=== PATIENT | female | born 1955 | race Caucasian/White ===

== ENCOUNTER 2018-06-21 07:58 | Inpatient (IN) | payer OTHER ==
[~2018-06-21 07:58] MED LIST: LIDOCAINE 2% (SDV) 5 ML INJ; PROPOFOL 200 MG INJ
[2018-06-21] MEDS ORDERED: VANCOMYCIN 1 GM (PMX) 250 ML (10:24)
[2018-06-21] MEDS: VANCOMYCIN 1 GM (PMX) 250 ML IVPB (10:43)
[2018-06-21] MEDS ORDERED: ZOLPIDEM 5 MG TAB PO (11:30)
[2018-06-21] MEDS ORDERED: HYDROmorphONE 2 MG/ML SYG (11:53)
[2018-06-21] MEDS ORDERED: GLUCAGON 1 MG INJ (12:04)
[2018-06-21] MEDS ORDERED: METOPROLOL 5 MG INJ (12:27)
[2018-06-21] MEDS ORDERED: SUGAMMADEX SODIUM 200 MG/2 ML VIAL IV (12:53)
[2018-06-21] MEDS ORDERED: metroNIDAZOLE 500 MG/NS (PMX) 100 ML IVPB (12:55)
[2018-06-21] MEDS ORDERED: HYDROmorphONE 1 MG/5 ML IV SYRINGE IV ×2 (13:30)
[2018-06-21] MEDS ORDERED: NACL 0.9% 3 ML SYG IV (15:00)
[2018-06-21] MEDS: D5W-0.45 NACL + KCL 20 MEQ 1,000 ML IV ×2 (15:55→21:10)
[2018-06-21] MEDS: metroNIDAZOLE 500 MG/NS (PMX) 100 ML IVPB ×2 (15:58→22:19)
[2018-06-21] MEDS: morphine 2 MG INJ IV (16:54)
[2018-06-22] MEDS: METOCLOPRAMIDE 10 MG INJ IV ×2 (04:47→11:06)
[2018-06-22] MEDS: D5W-0.45 NACL + KCL 20 MEQ 1,000 ML IV ×2 (04:47→17:24)
[2018-06-22] MEDS: HYDROCODONE/APAP (5/325) TAB PO (04:52)
[2018-06-22 05:06] LABS: ADD MAN DIFF? NO
[2018-06-22] MEDS: PANTOPRAZOLE 40 MG INJ IV (05:06)
[2018-06-22] MEDS: metroNIDAZOLE 500 MG/NS (PMX) 100 ML IVPB ×3 (05:06→22:50)
[2018-06-22 05:07] LABS: WHITE BLOOD COUNT 8.1 10^3/ul (4.8-10.8)
[2018-06-22 05:07] LABS: BASOPHILS % 0.4 % (0.0-2.0); EOSINOPHILS % 0.1 % (0.0-7.0); HEMATOCRIT 27.1 % (37.0-47.0); HEMOGLOBIN 8.8 g/dl (12.0-16.0); LYMPHOCYTES # 0.8 10^3/ul (0.8-2.9); LYMPHOCYTES % 10.1 % (15.0-51.0); MEAN CORPUSCULAR HEMOGLOBIN 29.7 pg (29.0-33.0); MEAN CORPUSCULAR HGB CONC 32.5 g/dl (32.0-37.0); MEAN CORPUSCULAR VOLUME 91.6 fl (82.0-101.0); MEAN PLATELET VOLUME 12.6 fl (7.4-10.4); MONOCYTE # 0.4 10^3/ul (0.3-0.9); MONOCYTES % 5.2 % (0.0-11.0); NEUTROPHIL # 6.8 10^3/ul (1.6-7.5); NEUTROPHILS % 83.7 % (39.0-77.0); PLATELET COUNT 107 10^3/UL (140-415); RED BLOOD COUNT 2.96 10^6/ul (4.20-5.40); RED CELL DISTRIBUTION WIDTH 13.5 % (11.5-14.5)
[2018-06-22 05:24] LABS: IRON 25 ug/dl (35-150)
[2018-06-22 05:34] LABS: % IRON SATURATION 15 % SAT (22-52); ALANINE AMINOTRANSFERASE 22 IU/L (13-69); ALBUMIN 2.4 g/dl (3.3-4.9); ALBUMIN/GLOBULIN RATIO 0.92; ALKALINE PHOSPHATASE 72 IU/L (42-121); ANION GAP 8 (8-16); ASPARTATE AMINO TRANSFERASE 18 IU/L (15-46); BILIRUBIN,INDIRECT 0.4 mg/dl (0-1.1); BILIRUBIN,TOTAL 0.4 mg/dl (0.2-1.3); BLOOD UREA NITROGEN 6 mg/dl (7-20); CALCIUM 7.6 mg/dl (8.4-10.2); CARBON DIOXIDE 26 mmol/L (21-31); CHLORIDE 104 mmol/L (97-110); CHOL/HDL RATIO 3.4 RATIO; CHOLESTEROL 96 mg/dl (100-200); CREATININE 0.54 mg/dl (0.44-1.00); GLUCOSE 135 mg/dl (70-220); HDL CHOLESTEROL 28 mg/dl (35-98); LDL CHOLESTEROL,CALCULATED 48 mg/dl; MAGNESIUM 1.8 mg/dl (1.7-2.5); POTASSIUM 3.8 mmol/L (3.5-5.1); SODIUM 134 mmol/L (135-144); TOTAL IRON BINDING CAPACITY 168 ug/dl (241-421); TRIGLYCERIDES 102 mg/dl (0-149)
[2018-06-22] MEDS ORDERED: ENOXAPARIN 40 MG/0.4 ML SYG SC (07:00)
[2018-06-22 08:30] LABS: HEMOGLOBIN A1C 5.2 % (0-5.9)
[2018-06-22] MEDS: HYDROCODONE/APAP (10/325) TAB PO ×2 (10:40→21:06)
[2018-06-23] MEDS: D5W-0.45 NACL + KCL 20 MEQ 1,000 ML IV ×3 (04:35→22:42)
[2018-06-23 05:26] LABS: ADD MAN DIFF? NO
[2018-06-23 05:35] LABS: ABNORMAL IP MESSAGE 1; BASOPHILS % 0.2 % (0.0-2.0); EOSINOPHILS # 0.1 10^3/ul (0.0-0.5); EOSINOPHILS % 1.3 % (0.0-7.0); HEMATOCRIT 24.5 % (37.0-47.0); HEMOGLOBIN 7.9 g/dl (12.0-16.0); LYMPHOCYTES # 0.6 10^3/ul (0.8-2.9); LYMPHOCYTES % 8.9 % (15.0-51.0); MEAN CORPUSCULAR HEMOGLOBIN 30.3 pg (29.0-33.0); MEAN CORPUSCULAR HGB CONC 32.2 g/dl (32.0-37.0); MEAN CORPUSCULAR VOLUME 93.9 fl (82.0-101.0); MEAN PLATELET VOLUME 11.5 fl (7.4-10.4); MONOCYTE # 0.3 10^3/ul (0.3-0.9); MONOCYTES % 4.9 % (0.0-11.0); NEUTROPHIL # 5.2 10^3/ul (1.6-7.5); NEUTROPHILS % 84.4 % (39.0-77.0); PLATELET COUNT 135 10^3/UL (140-415); RED BLOOD COUNT 2.61 10^6/ul (4.20-5.40); RED CELL DISTRIBUTION WIDTH 13.4 % (11.5-14.5)
[2018-06-23 05:35] LABS: WHITE BLOOD COUNT 6.2 10^3/ul (4.8-10.8)
[2018-06-23] MEDS: metroNIDAZOLE 500 MG/NS (PMX) 100 ML IVPB ×3 (05:41→21:26)
[2018-06-23] MEDS: PANTOPRAZOLE 40 MG INJ IV (05:42)
[2018-06-23 05:54] LABS: POSITIVE DIFF @See below
[2018-06-23 05:57] LABS: ANION GAP 6 (8-16); BLOOD UREA NITROGEN 3 mg/dl (7-20); CALCIUM 7.5 mg/dl (8.4-10.2); CARBON DIOXIDE 30 mmol/L (21-31); CHLORIDE 102 mmol/L (97-110); CREATININE 0.57 mg/dl (0.44-1.00); GLUCOSE 117 mg/dl (70-220); MAGNESIUM 1.8 mg/dl (1.7-2.5); POTASSIUM 3.7 mmol/L (3.5-5.1); SODIUM 134 mmol/L (135-144)
[2018-06-23] MEDS: HYDROCODONE/APAP (10/325) TAB PO ×2 (07:26→17:20)
[2018-06-23] MEDS: METOCLOPRAMIDE 10 MG INJ IV ×2 (08:27→15:38)
[2018-06-23] MEDS: CHOLECALCIFEROL 2,000 UNIT CAP PO (08:46)
[2018-06-23] MEDS: DOCUSATE SODIUM 100 MG CAP PO (15:38)
[2018-06-23] MEDS: HYDROCODONE/APAP (5/325) TAB PO (21:27)
[2018-06-24] MEDS: DOCUSATE SODIUM 100 MG CAP PO ×3 (00:25→21:01)
[2018-06-24] MEDS: HYDROCODONE/APAP (10/325) TAB PO ×2 (04:29→22:19)
[2018-06-24] MEDS: metroNIDAZOLE 500 MG/NS (PMX) 100 ML IVPB ×3 (06:07→21:00)
[2018-06-24] MEDS: PANTOPRAZOLE 40 MG INJ IV (06:07)
[2018-06-24] MEDS: CHOLECALCIFEROL 2,000 UNIT CAP PO (09:14)
[2018-06-24] MEDS: D5W-0.45 NACL + KCL 20 MEQ 1,000 ML IV ×3 (09:14→23:58)
[2018-06-24 11:54] LABS: MAGNESIUM 1.8 mg/dl (1.7-2.5)
[2018-06-24 11:54] LABS: ALANINE AMINOTRANSFERASE 22 IU/L (13-69); ALBUMIN 2.3 g/dl (3.3-4.9); ALBUMIN/GLOBULIN RATIO 0.79; ALKALINE PHOSPHATASE 77 IU/L (42-121); ANION GAP 7 (8-16); ASPARTATE AMINO TRANSFERASE 21 IU/L (15-46); BILIRUBIN,INDIRECT 0.3 mg/dl (0-1.1); BILIRUBIN,TOTAL 0.3 mg/dl (0.2-1.3); BLOOD UREA NITROGEN 3 mg/dl (7-20); CALCIUM 7.9 mg/dl (8.4-10.2); CARBON DIOXIDE 34 mmol/L (21-31); CHLORIDE 100 mmol/L (97-110); CREATININE 0.59 mg/dl (0.44-1.00); GLUCOSE 110 mg/dl (70-220); POTASSIUM 3.6 mmol/L (3.5-5.1); SODIUM 137 mmol/L (135-144); TOTAL PROTEIN 5.2 g/dl (6.1-8.1)
[2018-06-24] MEDS: ACETAMINOPHEN 325 MG TAB PO (12:00)
[2018-06-24] MEDS ORDERED: ERGOCALCIFEROL (8000 UNITS/ML PO SYG) PO (12:30)
[2018-06-24 13:57] LABS: ADD MAN DIFF? NO
[2018-06-24 14:00] LABS: ABNORMAL IP MESSAGE 1; BASOPHILS % 0.2 % (0.0-2.0); EOSINOPHILS # 0.1 10^3/ul (0.0-0.5); EOSINOPHILS % 1.3 % (0.0-7.0); HEMATOCRIT 24.2 % (37.0-47.0); HEMOGLOBIN 7.7 g/dl (12.0-16.0); LYMPHOCYTES # 0.6 10^3/ul (0.8-2.9); LYMPHOCYTES % 12.7 % (15.0-51.0); MEAN CORPUSCULAR HEMOGLOBIN 29.7 pg (29.0-33.0); MEAN CORPUSCULAR HGB CONC 31.8 g/dl (32.0-37.0); MEAN CORPUSCULAR VOLUME 93.4 fl (82.0-101.0); MEAN PLATELET VOLUME 11.6 fl (7.4-10.4); MONOCYTE # 0.3 10^3/ul (0.3-0.9); MONOCYTES % 7.1 % (0.0-11.0); NEUTROPHIL # 3.5 10^3/ul (1.6-7.5); NEUTROPHILS % 78.3 % (39.0-77.0); PLATELET COUNT 122 10^3/UL (140-415); RED BLOOD COUNT 2.59 10^6/ul (4.20-5.40); RED CELL DISTRIBUTION WIDTH 13.5 % (11.5-14.5)
[2018-06-24 14:00] LABS: WHITE BLOOD COUNT 4.5 10^3/ul (4.8-10.8)
[2018-06-24 14:02] LABS: POSITIVE DIFF @See below
[2018-06-24] MEDS: ERGOCALCIFEROL 50,000 UNIT CAP PO (14:24)
[2018-06-24] MEDS: ONDANSETRON 4 MG TAB PO (14:27)
[2018-06-24] MEDS: SOD FERRIC GLUC COMPLX 125 MG in SOD CHLORIDE 0.9% 100 ML IVPB (17:05)
[2018-06-25 05:11] LABS: ADD MAN DIFF? NO
[2018-06-25 05:17] LABS: WHITE BLOOD COUNT 4.9 10^3/ul (4.8-10.8)
[2018-06-25 05:17] LABS: ABNORMAL IP MESSAGE 1; BASOPHILS % 0.2 % (0.0-2.0); EOSINOPHILS # 0.1 10^3/ul (0.0-0.5); HEMATOCRIT 23.3 % (37.0-47.0); HEMOGLOBIN 7.2 g/dl (12.0-16.0); LYMPHOCYTES # 0.6 10^3/ul (0.8-2.9); LYMPHOCYTES % 11.8 % (15.0-51.0); MEAN CORPUSCULAR HEMOGLOBIN 29.8 pg (29.0-33.0); MEAN CORPUSCULAR HGB CONC 30.9 g/dl (32.0-37.0); MEAN CORPUSCULAR VOLUME 96.3 fl (82.0-101.0); MEAN PLATELET VOLUME 11.4 fl (7.4-10.4); MONOCYTE # 0.4 10^3/ul (0.3-0.9); NEUTROPHIL # 3.8 10^3/ul (1.6-7.5); NEUTROPHILS % 77.4 % (39.0-77.0); PLATELET COUNT 122 10^3/UL (140-415); RED BLOOD COUNT 2.42 10^6/ul (4.20-5.40); RED CELL DISTRIBUTION WIDTH 13.5 % (11.5-14.5)
[2018-06-25 05:19] LABS: POSITIVE DIFF @See below
[2018-06-25] MEDS: metroNIDAZOLE 500 MG/NS (PMX) 100 ML IVPB ×2 (06:31→14:31)
[2018-06-25] MEDS: PANTOPRAZOLE 40 MG INJ IV (06:31)
[2018-06-25] MEDS: ACETAMINOPHEN 325 MG TAB PO ×3 (06:40→21:59)
[2018-06-25] MEDS: CHOLECALCIFEROL 2,000 UNIT CAP PO (08:59)
[2018-06-25] MEDS: DOCUSATE SODIUM 100 MG CAP PO ×2 (09:00→21:17)
[2018-06-25] MEDS: NA PHOSPHATE/BIPHOS 133 ML ENEMA PR (11:07)
[2018-06-25] MEDS: MAGNESIUM HYDROXIDE 30ML CUP PO (11:07)
[2018-06-25] MEDS: D5W-0.45 NACL + KCL 20 MEQ 1,000 ML IV (11:07)
[2018-06-25] MEDS: METOCLOPRAMIDE 10 MG INJ IV ×3 (11:11→23:32)
[2018-06-25] MEDS: traMADol 50 MG TAB PO (13:17)
[2018-06-26] MEDS: D5W-0.45 NACL + KCL 20 MEQ 1,000 ML IV (01:10)
[2018-06-26] MEDS: PANTOPRAZOLE 40 MG INJ IV (06:50)
[2018-06-26] MEDS: METOCLOPRAMIDE 10 MG INJ IV (06:50)
[2018-06-26] MEDS: MAGNESIUM HYDROXIDE 30ML CUP PO (08:27)
[2018-06-26] MEDS: DOCUSATE SODIUM 100 MG CAP PO (08:27)
[2018-06-26] MEDS: CHOLECALCIFEROL 2,000 UNIT CAP PO (08:27)
[2018-06-26 08:47] LABS: ADD MAN DIFF? NO
[2018-06-26 08:49] LABS: WHITE BLOOD COUNT 3.5 10^3/ul (4.8-10.8)
[2018-06-26 08:50] LABS: ABNORMAL IP MESSAGE 1; BASOPHILS % 0.6 % (0.0-2.0); EOSINOPHILS # 0.1 10^3/ul (0.0-0.5); EOSINOPHILS % 2.3 % (0.0-7.0); HEMOGLOBIN 7.1 g/dl (12.0-16.0); LYMPHOCYTES # 0.5 10^3/ul (0.8-2.9); LYMPHOCYTES % 15.6 % (15.0-51.0); MEAN CORPUSCULAR HEMOGLOBIN 29.3 pg (29.0-33.0); MEAN CORPUSCULAR HGB CONC 30.9 g/dl (32.0-37.0); MEAN PLATELET VOLUME 11.3 fl (7.4-10.4); MONOCYTE # 0.3 10^3/ul (0.3-0.9); MONOCYTES % 8.6 % (0.0-11.0); NEUTROPHIL # 2.5 10^3/ul (1.6-7.5); NEUTROPHILS % 71.7 % (39.0-77.0); PLATELET COUNT 126 10^3/UL (140-415); RED BLOOD COUNT 2.42 10^6/ul (4.20-5.40); RED CELL DISTRIBUTION WIDTH 13.9 % (11.5-14.5)
[2018-06-26 08:57] LABS: POSITIVE DIFF @See below
[2018-06-26 09:26] LABS: ANION GAP 7 (8-16); BLOOD UREA NITROGEN 3 mg/dl (7-20); CALCIUM 7.8 mg/dl (8.4-10.2); CARBON DIOXIDE 32 mmol/L (21-31); CHLORIDE 101 mmol/L (97-110); CREATININE 0.56 mg/dl (0.44-1.00); GLUCOSE 96 mg/dl (70-220); MAGNESIUM 1.8 mg/dl (1.7-2.5); POTASSIUM 3.9 mmol/L (3.5-5.1); SODIUM 136 mmol/L (135-144)
== END 2018-06-26 11:35 | disposition home or self-care (01) | DRG 330 ==
LOC: REC 07:58 → MS1 15:07
PROC: 0DTN0ZZ Resection of Sigmoid Colon, Open Approach (ICD-10-PCS; principal; 2018-06-21 11:00)
PROC: 0DTP0ZZ Resection of Rectum, Open Approach (ICD-10-PCS; 2018-06-21 11:00)
PROC: 0FB00ZX Excision of Liver, Open Approach, Diagnostic (ICD-10-PCS; 2018-06-21 11:00)
DX: C19 Malignant neoplasm of rectosigmoid junction (principal); D69.3 Immune thrombocytopenic purpura; C78.7 Secondary malignant neoplasm of liver and intrahepatic bile duct; F17.200 Nicotine dependence, unspecified, uncomplicated; E55.9 Vitamin D deficiency, unspecified
CPT/HCPCS: 74018; 80048; 80053; 80061; 82306; 82607; 82652; 82728; 82746; 83036; 83540; 83735; 84443; 85025; 86850; 86870; 86880; 86900; 86901; 86971; 86978; 88305; 88307; 97116; 97161